=== PATIENT | male | born 1945 | race Caucasian/White ===

== ENCOUNTER → 2018-12-13 | Outpatient (CLI) | payer OTHER ==
[~2018-12-13] VITALS: Ht 180.3 cm; Wt 77.1 kg
[~2018-12-13] MED LIST: ASPIR 8181 MG PO; ATORVASTATIN CA40 MG PO; BYSTOLIC 5 MG5 MG PO; COUMADIN 5 MG TA5 M1 PO; FERREX 150150 MG PO; FLAX SEED OIL1000 MG PO; HYDROCODONE-AP1 EAC6 PO; LISINOPRIL10 MG PO; MELATONIN3 MG PO; PLAVIX 75 MG TA75 M1 PO; TOPROL XL25 MG PO; VITAMIN D-32000 UNIT PO; ZETIA10 MG PO
[2018-12-13 06:51] VITALS: BP 171/74
[2018-12-13 07:24] LABS: HEMATOCRIT 38.4 % (42.0-52.0); HEMOGLOBIN 12.9 gm/dL (14.0-18.0); MCH 31.5 pg (26.0-34.0); MCHC 33.6 g/dL (28.0-37.0); MCV 93.9 fL (80.0-100.0); RBC 4.09 mil/uL (4.50-6.00); RDW 14.8 % (10.5-14.5); WBC 8.7 thou/uL (4.0-11.0)
[2018-12-13 07:32] LABS: CALCIUM 9.2 mg/dL (8.5-10.1); CREATININE 1.3 mg/dL (0.7-1.3); POTASSIUM 3.9 mmol/L (3.5-5.1)
--- NOTE | 2018-12-13 08:38 | EKG ---
[address] [place] [address] ELECTROCARDIOGRAM REPORT Name: EMMY FELDMAN [facility] [id number] ������������������ Admission: 12/13/18 ������������������ Attend Phys: Robles English MD, Discharge: ������������������ Date of : 47 Report #: [id number] ����������������������������������������������������������������� [id number] THIS REPORT FOR: //name// [facility] Test Date: 2018-12-13 Test Time: 07:42:10 Pat Name: EMMY FELDMAN Department: Room: Gender: Plant Operations Manager: Hemal DELEON : 1945 Requested By: Robles English Order Number: [id number] MD: Nirmal Ventura Measurements Intervals Jber Rate: 56 P: 48 NM: 130 QRS: 65 QRSD: 150 T: 35 QT: 442 QTc: 427 Interpretive Statements Sinus rhythm Right bundle branch block Compared to ECG 03/29/2015 06:30:27 Sinus bradycardia no longer present Short NM interval no longer present Myocardial infarct finding no longer present Electronically Signed On 12-13-2018 8:38:41 CDT by Nirmal Ventura [email or web address] ��������������������������������������������� <ELECTRONICALLY SIGNED> ���������������������������������������� By: Nirmal Ventura MD ��������������������������������������������� 12/13/18 0838 Nirmal Ventura MD /EPI
--- NOTE | 2018-12-13 17:33 | CATHLAB ---
[facility] [address] [place] [address] INVASIVE PROCEDURE REPORT Name: EMMY FELDMAN Room #: [facility] [id number] ������������� Admission: 12/13/18 ������������� Attend Phys: Robles English, Discharge: ��� ������������� ��� Date of : 47 Date of Service: 12/13/18 1733 �� Report #: [id number] �������� ��������������������������������������������[id number] THIS REPORT FOR: //name// APPROVED REPORT Study performed: 12/13/2018 07:09:43 Patient Details Patient Status: Out-Patient Room #: The patient is a 73 year-old male Event Personnel Robles English Carton Gluing Machine Operator, Cassy Parish RN RN, Andrés Orantes, Josselin Huerta Monitor Procedures Performed Art Access - R femoral artery* 02107 Initial Mod Sed Same Phys/QHP Gr5y 983556 96489 Mod Sed Same Phys/QHP Ea 680996 Left Heart Cath Coronaries, Bypass Grafts 6897954 LHCCORCABG Hemostasis w/ Mynx Indication Chest pain Procedure Narrative The Right Groin^ was infiltrated with 1% Lidocaine subcutaneous anesthesia. A PINNACLE 6FR Sheath #[id number] sheath was inserted into the RFA^. Coronary angiography was performed using coronary diagnostic catheters. The right coronary system was accessed and visualized with a JR 4 catheter. The left coronary system was accessed and visualized with a JL 4 catheter. The left ventricle was accessed and visualized with a Pigtail catheter. Left ventriculogram was performed in MEJIA projection. An aortogram of the abdominal aorta was performed. Pre-demployment femoral angiogram was performed . Closure device was deployed with a 6 Fr Mynx. The patient tolerated the procedure well and there were no complications associated with the procedure. There was no hematoma. Intraoperative Conscious Sedation Sedation start time: 08:17 Case end Time: 08:52 Fentanyl 100 mcg Versed 2 mg Fluoro Time: 6.37 minutes Dose: DAP 3799.00 cGycm2 389 mGy [facility] [address] [address] INVASIVE PROCEDURE REPORT Name: EMMY FELDMAN [facility] [id number] ������������� Admission: 12/13/18 ������������� Attend Phys: Robles English, Discharge: ��� ������������� ��� Date of : 47 Date of Service: 12/13/18 1733 �� Report #: [id number] �������� ��������������������������������������������[id number] Contrast Type and Amount: Visipaque 105 ml Hemodynamics The aortic pressure is 156/59 mmHg with a mean of 93 mmHg. The left ventricular pressure is 142/16 mmHg with a mean of mmHg. The left ventricular end diastolic pressure is 29 mmHg. 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 Diffuse disease throughout. 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 There is no indication for coronary intervention. Stable upon return to CV recovery for discharge later today. ��������������������������������������������� <ELECTRONICALLY SIGNED> ���������������������������������������� By: Robles English MD, FACC ��������������������������������������������� 12/13/18 1733 [id number] Robles English MD, FACC /INF
== END | disposition home or self-care (01) ==
LOC: CATH 06:14
PROVIDERS: Internal Medicine Cardiovascular Disease
DX: I25.810 Atherosclerosis of coronary artery bypass graft(s) without angina pectoris (principal); I71.4 Abdominal aortic aneurysm, without rupture; I10 Essential (primary) hypertension; E78.5 Hyperlipidemia, unspecified; F17.210 Nicotine dependence, cigarettes, uncomplicated; I73.9 Peripheral vascular disease, unspecified; Z95.5 Presence of coronary angioplasty implant and graft; Z95.1 Presence of aortocoronary bypass graft; Z82.49 Family history of ischemic heart disease and other diseases of the circulatory system; Z85.46 Personal history of malignant neoplasm of prostate; Z79.01 Long term (current) use of anticoagulants

== ENCOUNTER → 2020-02-26 | Outpatient (CLI) | payer OTHER | LOC: SJCVCIMAG 08:14 | PROVIDERS: ATTEND Internal Medicine Cardiovascular Disease | DX: I71.4 Abdominal aortic aneurysm, without rupture (principal); I72.3 Aneurysm of iliac artery; I45.2 Bifascicular block; I35.1 Nonrheumatic aortic (valve) insufficiency; I25.810 Atherosclerosis of coronary artery bypass graft(s) without angina pectoris; I25.2 Old myocardial infarction; Z95.1 Presence of aortocoronary bypass graft; Z98.61 Coronary angioplasty status ==

== ENCOUNTER → 2020-11-04 | Outpatient (CLI) | payer OTHER | LOC: SJCVC 09:47 | PROVIDERS: ATTEND Internal Medicine Cardiovascular Disease | DX: R94.31 Abnormal electrocardiogram [ECG] [EKG] (principal); I45.2 Bifascicular block; I25.810 Atherosclerosis of coronary artery bypass graft(s) without angina pectoris; I10 Essential (primary) hypertension; E78.00 Pure hypercholesterolemia, unspecified; I71.4 Abdominal aortic aneurysm, without rupture; I73.9 Peripheral vascular disease, unspecified; I25.5 Ischemic cardiomyopathy; I72.3 Aneurysm of iliac artery; I65.23 Occlusion and stenosis of bilateral carotid arteries; F17.210 Nicotine dependence, cigarettes, uncomplicated; Z95.1 Presence of aortocoronary bypass graft; Z98.890 Other specified postprocedural states; Z88.8 Allergy status to other drugs, medicaments and biological substances; Z79.82 Long term (current) use of aspirin; Z79.899 Other long term (current) drug therapy ==

== ENCOUNTER → 2021-06-23 | Outpatient (CLI) | payer OTHER | LOC: SJCVC 13:27 | PROVIDERS: ATTEND Internal Medicine Cardiovascular Disease | DX: R94.31 Abnormal electrocardiogram [ECG] [EKG] (principal); I45.2 Bifascicular block; I25.810 Atherosclerosis of coronary artery bypass graft(s) without angina pectoris; I25.5 Ischemic cardiomyopathy; I71.4 Abdominal aortic aneurysm, without rupture; I72.3 Aneurysm of iliac artery; I77.9 Disorder of arteries and arterioles, unspecified; I10 Essential (primary) hypertension; E78.00 Pure hypercholesterolemia, unspecified; F17.210 Nicotine dependence, cigarettes, uncomplicated; Z72.89 Other problems related to lifestyle; Z88.8 Allergy status to other drugs, medicaments and biological substances; Z79.82 Long term (current) use of aspirin; Z79.899 Other long term (current) drug therapy; Z95.1 Presence of aortocoronary bypass graft ==